=== PATIENT | male | born 1950 ===

== ENCOUNTER 2025-04-06 12:45 | Inpatient (IN) | payer OTHER ==
[~2025-04-06] VITALS: Ht 167.6 cm; Wt 74.8 kg
[~2025-04-06 12:45] MED LIST: LIPITOR20 MG PO; METFORMIN HCL750 MG PO
[2025-04-10] MEDS ORDERED: COZAAR25 MG (13:07)
[2025-04-13] MEDS ORDERED: METRONIDAZOLE/SODIUM CHLORIDE 500 MG/100 ML PIGGYBACK IV ONE ×3 (06:59→12:49)
[2025-04-13] MEDS ORDERED: CEFTRIAXONE SODIUM 2,000 MG VIAL ONE (06:59)
[2025-04-13] MEDS ORDERED: LIDOCAINE HCL 1%/EPINEPHRINE 20ML VIAL IJ ONE ×2 (08:32→10:15)
[2025-04-13] MEDS ORDERED: BUPIVACAINE HCL/MPF 0.5% 30ML VIAL ONE (08:32)
[2025-04-13] MEDS ORDERED: BUPIVACAINE HCL 30 ML VIAL IJ ONE (10:15)
[2025-04-13] MEDS ORDERED: CEFTRIAXONE SODIUM 2,000 MG VIAL IV ONE (10:15)
[2025-04-13] MEDS ORDERED: SUGAMMADEX SODIUM 200 MG/2 ML VIAL IV ONE (11:39)
[2025-04-13] MEDS ORDERED: TAMSULOSIN HCL 0.4 MG CAP PO SCH (11:58)
[2025-04-13] MEDS ORDERED: LACTOBACILLUS ACIDOPHILUS 1 CAP CAP PO SCH (11:58)
[2025-04-13] MEDS ORDERED: RINGERS SOLUTION,LACTATED 1,000 ML IV SCH (12:00)
[2025-04-13] MEDS ORDERED: OxyCODONE HCL 5 MG TABLET (ROXICODONE) PO PRN (12:00)
[2025-04-13] MEDS ORDERED: ONDANSETRON HCL 2 MG/ML VIAL IV PRN (12:00)
[2025-04-13] MEDS ORDERED: MORPHINE SULFATE 4 MG/ML CARTRIDGE IV PRN (12:00)
[2025-04-13] MEDS ORDERED: ACETAMINOPHEN 500 MG GEL..CAP PO SCH (12:00)
[2025-04-13] MEDS ORDERED: METRONIDAZOLE/SODIUM CHLORIDE 500 MG/100 ML PIGGYBACK IV SCH (13:00)
[2025-04-13] MEDS ORDERED: HYOSCYAMINE SULFATE 0.125 MG TAB.SUBL SL SCH (13:00)
[2025-04-13] MEDS ORDERED: ONDANSETRON HCL 2 MG/ML VIAL ONE (13:13)
[2025-04-13] MEDS ORDERED: ONDANSETRON HCL 2 MG/ML VIAL IV ONE (13:15)
[2025-04-13] MEDS ORDERED: ENALAPRILAT DIHYDRATE 1.25 MG/ML VIAL IV PRN (13:30)
[2025-04-13] MEDS ORDERED: INSULIN LISPRO 1,000 UNIT/10 ML UNITS SUBCUTANEO PRN (13:30)
[2025-04-13] MEDS ORDERED: DEXTROSE 50 % IN WATER 0.5 G/ML DISP.SYRIN IV PRN (13:30)
[2025-04-13 14:45] VITALS: BP 144/68; O2SAT 96
[2025-04-13 16:00] VITALS: BP 160/74; O2SAT 98
[2025-04-13] MEDS ORDERED: GABAPENTIN 300 MG CAPSULE PO SCH (17:00)
[2025-04-13 17:03] VITALS: O2SAT 95
[2025-04-13 19:11] VITALS: O2SAT 96
[2025-04-13] MEDS ORDERED: CIPROFLOXACIN IN 5 % DEXTROSE 400 MG/200 ML PIGGYBAG IV SCH (21:00)
[2025-04-13] MEDS ORDERED: FAMOTIDINE/PF 20 MG/2 ML VIAL IV PUSH SCH (21:00)
[2025-04-14 00:30] VITALS: BP 108/64; O2SAT 100
[2025-04-14 03:02] VITALS: O2SAT 98
[2025-04-14 08:05] LABS: BASO % 0.2 % (0.1-1.2); EOS # 0.00 (0.04-0.54); EOS % 0.0 % (0.7-7.0); LYMPH # 0.45 (1.18-3.74); LYMPH % 7.2 % (19.3-53.1); MEAN PLATELET VOLUME 10.60 fl (9.4-12.4); MONO # 0.54 (0.24-0.82); MONO % 8.6 % (4.7-12.5); NEUT # 5.25 (1.56-6.13); NEUT % 83.8 % (34.0-71.1); RED CELL DISTRIBUTION WIDTH 13.1 % (11.6-14.4)
[2025-04-14 08:10] VITALS: BP 121/66; O2SAT 100
[2025-04-14 08:25] LABS: BUN CREA RATIO 10.0 (7.0-25.0); CREATININE SERUM 0.68 mg/dL (0.70-1.30); GFR 113.68; GLUCOSE FASTING 185.0 mg/dL (65-100); OSMOLALITY SERUM 280.0 MOSM/KG (275-295)
[2025-04-14] MEDS ORDERED: LOSARTAN POTASSIUM 25 MG TABLET PO SCH (09:00)
[2025-04-14] MEDS ORDERED: METOCLOPRAMIDE HCL 10 MG in DEXTROSE 5 % IN WATER 50 ML IV SCH (12:00)
[2025-04-14 16:37] VITALS: BP 115/58; O2SAT 97
[2025-04-14] MEDS ORDERED: ATORVASTATIN CALCIUM 10 MG TABLET PO SCH (17:00)
[2025-04-14] MEDS ORDERED: ENOXAPARIN SODIUM 40 MG/0.4 ML SYRINGE SUBCUTANEO SCH (17:00)
[2025-04-14] MEDS ORDERED: POLYETHYLENE GLYCOL 3350 17 GM BLIST.PACK PO SCH (17:00)
[2025-04-14 18:30] VITALS: O2SAT 94
[2025-04-14 20:00] VITALS: BP 103/60; O2SAT 95
[2025-04-15 01:06] VITALS: BP 137/72; O2SAT 96
[2025-04-15 05:25] VITALS: O2SAT 100
[2025-04-15 07:50] LABS: BASO % 0.4 % (0.1-1.2); EOS # 0.09 (0.04-0.54); EOS % 1.8 % (0.7-7.0); LYMPH # 0.58 (1.18-3.74); LYMPH % 11.6 % (19.3-53.1); MEAN PLATELET VOLUME 11.20 fl (9.4-12.4); MONO # 0.50 (0.24-0.82); MONO % 10.0 % (4.7-12.5); NEUT # 3.80 (1.56-6.13); NEUT % 75.8 % (34.0-71.1); RED CELL DISTRIBUTION WIDTH 13.2 % (11.6-14.4)
[2025-04-15 08:08] LABS: BUN CREA RATIO 9.0 (7.0-25.0); CREATININE SERUM 0.74 mg/dL (0.70-1.30); GFR 103.11; GLUCOSE FASTING 148.0 mg/dL (65-100); OSMOLALITY SERUM 282.0 MOSM/KG (275-295)
[2025-04-15 08:18] VITALS: BP 147/70; O2SAT 99
[2025-04-15] MEDS ORDERED: ENOXAPARIN SODIUM 40 MG/0.4 ML SYRINGE SUBCUTANEO SCH (09:00)
[2025-04-15 09:04] VITALS: O2SAT 90
[2025-04-15] MEDS ORDERED: POTASSIUM PHOS,M-BASIC-D-BASIC 3 MM/ML VIAL IV ONE (11:00)
[2025-04-15 16:00] VITALS: BP 136/72; O2SAT 98
[2025-04-15] MEDS ORDERED: MORPHINE SULFATE 4 MG/ML CARTRIDGE IV PRN (16:15)
[2025-04-15 20:01] VITALS: O2SAT 83
[2025-04-16 00:51] VITALS: BP 139/78; O2SAT 97
[2025-04-16 01:00] VITALS: O2SAT 97
[2025-04-16 05:20] VITALS: O2SAT 97
[2025-04-16 09:13] VITALS: O2SAT 90
[2025-04-16 09:20] VITALS: BP 145/86; O2SAT 95
[2025-04-16 13:10] VITALS: O2SAT 86
[2025-04-16] MEDS ORDERED: INTESTINEX680 M1 PO (13:19)
[2025-04-16] MEDS ORDERED: HYOSCYAMINE0.125 M1 SL (13:19)
[2025-04-16] MEDS ORDERED: IMODIUM A-D2 M2 PO (13:20)
== END 2025-04-16 15:43 | disposition home or self-care (01) | DRG 330 ==
LOC: SURH 04-13 06:00 → O/R 04-13 06:00 → SURH 04-13 10:45
PROVIDERS: Surgery; ADMIT Surgery; ATTEND Surgery
PROC: 0DBP4ZZ Excision of Rectum, Percutaneous Endoscopic Approach (ICD-10-PCS; 2025-04-13)
PROC: 07BB4ZZ Excision of Mesenteric Lymphatic, Percutaneous Endoscopic Approach (ICD-10-PCS; 2025-04-13)
PROC: 07BC4ZZ Excision of Pelvis Lymphatic, Percutaneous Endoscopic Approach (ICD-10-PCS; 2025-04-13)
PROC: 0DTN4ZZ Resection of Sigmoid Colon, Percutaneous Endoscopic Approach (ICD-10-PCS; 2025-04-13)
PROC: 0DJD8ZZ Inspection of Lower Intestinal Tract, Via Natural or Artificial Opening Endoscopic (ICD-10-PCS; 2025-04-13)
PROC: 8E0W4CZ Robotic Assisted Procedure of Trunk Region, Percutaneous Endoscopic Approach (ICD-10-PCS; 2025-04-13)
PROC: 4A12X4Z Monitoring of Cardiac Electrical Activity, External Approach (ICD-10-PCS; 2025-04-13)
PROC: 0D1B4Z4 Bypass Ileum to Cutaneous, Percutaneous Endoscopic Approach (ICD-10-PCS; principal; 2025-04-13 10:45)
DX: C20 Malignant neoplasm of rectum (principal); K56.690 Other partial intestinal obstruction; K62.4 Stenosis of anus and rectum; R59.0 Localized enlarged lymph nodes; Z92.21 Personal history of antineoplastic chemotherapy; Z93.2 Ileostomy status; G47.30 Sleep apnea, unspecified; D69.6 Thrombocytopenia, unspecified; E10.9 Type 1 diabetes mellitus without complications; Z79.84 Long term (current) use of oral hypoglycemic drugs
CPT/HCPCS: 44207; 38571; 38570; 44187; 44213; 93228; S2900